=== PATIENT | female | born 1945 | race Caucasian/White ===

== ENCOUNTER 2018-04-20 13:32 | Outpatient (CLI) | payer OTHER ==
[~2018-04-20] VITALS: Ht 157.5 cm; Wt 50.9 kg
[2018-04-20 14:41] VITALS: BP 144/83; Ht 157.5 cm; Wt 50.9 kg
== END 2018-04-20 15:13 | disposition home or self-care (01) ==
LOC: D.OPS 13:32
DX: M81.0 Age-related osteoporosis without current pathological fracture (principal)

== ENCOUNTER 2018-09-28 12:38 | Outpatient (CLI) | payer OTHER ==
[~2018-09-28] VITALS: Ht 157.5 cm; Wt 50.9 kg
[2018-09-28 13:43] VITALS: BP 131/60; Ht 157.5 cm; Wt 50.9 kg
== END 2018-09-28 14:06 | disposition home or self-care (01) ==
LOC: D.OPS 12:38
PROVIDERS: ATTEND Family Medicine
DX: M81.0 Age-related osteoporosis without current pathological fracture (principal)

== ENCOUNTER 2019-04-04 12:23 | Outpatient (CLI) | payer OTHER ==
[~2019-04-04] VITALS: Ht 157.5 cm; Wt 53.2 kg
[2019-04-04 12:58] VITALS: BP 120/77; Ht 157.5 cm; Wt 53.2 kg
== END 2019-04-04 13:09 | disposition home or self-care (01) ==
LOC: D.OPS 12:23
PROVIDERS: ATTEND Family Medicine
DX: M81.0 Age-related osteoporosis without current pathological fracture (principal)